=== PATIENT | female | born 1965 ===

== ENCOUNTER 2020-08-13 11:06 | Outpatient (CLI) | payer OTHER, SELFPAY ==
--- NOTE | ~2020-08-13 | US_ITS ---
US right upper quadrant INDICATION: Abnormal liver function tests. PROCEDURE: Realtime right upper abdominal ultrasound. COMPARISON: No prior studies for comparison. FINDINGS: The pancreas is normal without focal mass or pancreatic ductal dilation. Liver echotexture is increased, consistent with fatty infiltration. There is normal directional flow in the portal ve in. There are gallstones. No significant gallbladder wall thickening or pericholecystic fluid. Common bi le duct measures 5.7 mm. No sonographic Santana's sign. IMPRESSION: 1: Cholelithiasis. 2: Hepatic steatosis. Reviewed, dictated and finalized at location B.
== END 2020-08-13 11:07 ==
LOC: MICIMG 11:09
PROVIDERS: PCP Internal Medicine; Visit Provider Internal Medicine Rheumatology
DX: R94.5 Abnormal results of liver function studies (principal); K80.20 Calculus of gallbladder without cholecystitis without obstruction; K76.0 Fatty (change of) liver, not elsewhere classified
CPT/HCPCS: 76705

== ENCOUNTER 2021-06-22 13:17 | Outpatient (CLI) | payer OTHER, SELFPAY ==
--- NOTE | ~2021-06-22 | CT_ITS ---
EXAMINATION: CT brain wo con DATE: 06/22/2021 13:35 INDICATION: Headache. TECHNIQUE: Computed tomography (CT) of the head was performed without intravenous contrast. The mA wa s adjusted according to patient size. Iterative reconstruction technique was employed. The dose-lengt h product was 599.57 mGy-cm. COMPARISON: None FINDINGS: There is a small old infarct in right frontal lobe. There is no intracranial hemorrhage, ac raven infarction, or abnormal intracranial mass lesion. The ventricles are normal in size. The orbits a re normal. The paranasal sinuses are clear. The mastoid air cells are normal. IMPRESSION: 1. 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 Reviewed, dictated and finalized at location B.
== END 2021-06-22 13:18 ==
LOC: MICIMG 13:18
PROVIDERS: PCP Internal Medicine; Visit Provider Internal Medicine
DX: R51.9 Headache, unspecified (principal)
CPT/HCPCS: 70450

== ENCOUNTER → 2022-03-01 12:47 | Outpatient (CLI) | payer OTHER, SELFPAY ==
--- NOTE | ~2022-03-01 | XR_ITS ---
EXAM: XR lumbar spine 2-3V DATE: 03/01/2022 14:16 HISTORY: Rheumatoid arthritis without rheumatoid factor, multiple sit . COMPARISON: None available. FINDINGS: Decreased mineralization. 5 nonrib-bearing lumbar-type vertebral bodies. Pedicles intact. E xaggerated lumbar lordosis. 2 mm retrolistheses at L1-2 and L3-4. 4 mm retrolisthesis at L2-3. Multil evel disc space narrowing and marginal osteophytosis, worse in the lower thoracic and upper lumbar sp ine. Multilevel facet hypertrophy and sclerosis, with interspinous narrowing in the lower lumbar spin e. Incompletely visualized hip arthroplasties. No fracture or dislocation. IMPRESSION: Multilevel degenerative disc disease and grade 1 listheses. Multilevel facet arthropathy. Reviewed, dictated and finalized at location K. [facility] IMPRESSION: Multilevel degenerative disc disease and grade 1 listheses. Multile lucinda facet arthropathy.
--- NOTE | ~2022-03-01 | XR_ITS ---
EXAMINATION:XR_[id number]_CR DATE: 03/01/2022 14:16 INDICATION: Chronic neck pain TECHNIQUE: AP, lateral, lateral swimmers and odontoid views of the cervical spine are provided. COMPARISON: None FINDINGS: Alignment is normal. There is straightening of the cervical spine which can be positional o r due to muscular spasm. The odontoid is intact. No fracture is identified. Vertebral body heights an d disk spaces are normal. Prevertebral soft tissues are normal. There is mild multilevel facet and un covertebral joint osteoarthritis. IMPRESSION: 1. Mild cervical spondylosis without acute findings. Reviewed, dictated and finalized at location B. [facility]
== END ==
PROVIDERS: PCP Internal Medicine; Visit Provider Internal Medicine Rheumatology
DX: M06.09 Rheumatoid arthritis without rheumatoid factor, multiple sites (principal); Z79.899 Other long term (current) drug therapy; M47.892 Other spondylosis, cervical region; M51.36 Other intervertebral disc degeneration, lumbar region
CPT/HCPCS: 72040; 72100